=== PATIENT | male | born 1955 | race Caucasian/White ===

== ENCOUNTER 2018-02-01 03:09 | Inpatient (IN) | payer SELFPAY ==
[2018-02-01] MEDS ORDERED: Octreotide Acetate 1,250 MCG in Sodium Chloride 0.9% 250 ML 250 ML IVPB SCH (03:30)
[2018-02-01 03:57] LABS: ALT (SGPT) 317 U/L (8-55); AST (SGOT) 2109 U/L (5-34); Albumin 2.4 g/dL (3.5-5.0); Alkaline Phosphatase 248 U/L (40-150); Anion Gap 46 mmol/L (10-20); BUN (Urea Nitrogen) 28 mg/dL (8.4-25.7); Bilirubin, Total 6.3 mg/dL (0.2-1.2); CK (CPK) 684 U/L (30-200); Calc. Creatinine Clearance 0 mL/min (70-130); Calcium 7.3 mg/dL (7.8-10.44); Carbon Dioxide 13 mmol/L (22-29); Chloride 79 mmol/L (98-107); Estimated GFR-MDRD 42; Globulin 3.2 g/dL (2.4-3.5); Protein, Total 5.6 g/dL (6.0-8.3); Sodium 135 mmol/L (136-145)
[2018-02-01 04:01] LABS: CKMB 6.1 ng/mL (0-6.6); Troponin I 0.043 ng/mL (< 0.028)
[2018-02-01 04:03] LABS: Glucose 39 mg/dL (70-105); Potassium 2.5 mmol/L (3.5-5.1)
[2018-02-01] MEDS ORDERED: Dextrose 50% Abboject 50 ML SYRINGE ONE (04:03)
[2018-02-01 04:05] LABS: Medtox Reader # READER 1
[2018-02-01 04:06] LABS: Amphetamine Not Detected (NotDetected); Barbiturates Screen Not Detected (NotDetected); Benzodiazepine Screen Not Detected (NotDetected); Cocaine Metabolite Screen Not Detected (NotDetected); Medtox Control Line Valid? VALID (VALID); Methadone Not Detected (NotDetected); Methamphetamine Not Detected (NotDetected); Opiate Screen Not Detected (NotDetected); Oxycodone Screen Not Detected (NotDetected); Phencyclidine (PCP) Not Detected (NotDetected); THC/Cannabinoid Screen Not Detected (NotDetected); Tricyclic Screen Not Detected (NotDetected)
[2018-02-01 04:10] LABS: Hemoglobin 8.8 g/dL (14.0-18.0); Mean Corpuscular HGB CONC 33.9 g/dL (32.0-36.0); Mean Corpuscular Hemoglobin 37.2 pg (27.0-31.0); Mean Platelet Volume 9.1 fL (7.4-10.4); Platelet Count 140 thou/uL (130-400); Red Blood Cell (RBC) Count 2.36 mill/uL (4.70-6.10)
[2018-02-01 04:19] LABS: Actual Bicarbonate (HCO3a) 19.4 mEq/L (22-28); Base Excess (BEa) -9.2 mEq/L (-2.0 to +3.0); CO2 Tension 61.3 mmHg (35.0-45.0); Hematocrit-ABG 29.3 % (42.0-52.0); Hemoglobin (Hb) 6.2 g/dL (14.0-18.0); O2 Tension (PaO2) 93.1 mmHg (> 80.0); pH, Arterial 7.12 (7.35-7.45)
[2018-02-01 04:20] LABS: Analyzer IN Cardio ER; Calcium, Ionized 0.8 mmol/L (1.12-1.30); Puncture Site FEMORAL
[2018-02-01 04:21] LABS: ALV-art Gradient 538.275 (0-20)
[2018-02-01 04:28] LABS: INR-International Normal Ratio 2.1; PTT 43.4 SEC (22.9-36.1); Prothrombin Time 23.8 SEC (12.0-14.7)
[2018-02-01] MEDS ORDERED: cefTRIAXone\\ROCEPHIN 1 GM VIAL ONE (05:14)
[2018-02-01 05:23] LABS: Band 21 % (5-11); Lymphocytes 13 % (21-51); MDiff Complete? YES; Macrocytosis SLIGHT = 6-15 cells (100X) (0-5/hpf); Monocytes 2 % (0-10); Neutrophil 64 % (42-75)
[2018-02-01 05:36] LABS: Bilirubin Moderate (Negative); Blood, Urine Negative (Negative); Clarity CLOUDY (Clear); Glucose, Urine (Dipstick) Negative (Negative); Leukocyte Small (Negative); Nitrite Positive (Negative); Protein, Urine (Dipstick) Trace mg/dL (Neg-Trace); Specific Gravity, Urine 1.018 (1.002-1.036); pH, Urine 5.5 (5.0-9.0)
[2018-02-01 05:39] LABS: Bacteria/HPF None Seen HPF (None Seen); Hyaline Casts/LPF 4-6 HYALINE CAST LPF (0-3 Hyaline); Pathc Cast-AUWi Flag 0.87 (0-2.49); Squamous Epithelial None Seen HPF (0-3); WBC/HPF None Seen HPF (0-3)
[2018-02-01 05:44] LABS: INR-International Normal Ratio 1.9; PTT 41.7 SEC (22.9-36.1); Prothrombin Time 22.4 SEC (12.0-14.7)
[2018-02-01] MEDS ORDERED: Sodium Chloride 0.9% 1,000 ML IV SCH (06:15)
[2018-02-01] MEDS ORDERED: Dextrose 5% in Water 1,000 ML IV PRN ×2 (06:28→06:39)
[2018-02-01] MEDS ORDERED: Dextrose 50% Abboject 50 ML SYRINGE SLOW IVP PRN (06:28)
[2018-02-01 06:37] LABS: Anisocytosis SLIGHT = 6-15 cells (100X) (0-5/hpf); Band 11 % (5-11); Hemoglobin 9.2 g/dL (14.0-18.0); Lymphocytes 32 % (21-51); MDiff Complete? YES; Macrocytosis SLIGHT = 6-15 cells (100X) (0-5/hpf); Mean Corpuscular HGB CONC 32.6 g/dL (32.0-36.0); Mean Corpuscular Hemoglobin 34.4 pg (27.0-31.0); Monocytes 2 % (0-10); Neutrophil 55 % (42-75); PLT Morphology Comment Appears Decreased; Platelet Count 112 thou/uL (130-400); RBC Distribution Width 15.7 % (11.5-14.5); Red Blood Cell (RBC) Count 2.66 mill/uL (4.70-6.10); White Blood Cell (WBC) Count 3.6 thou/uL (4.8-10.8)
[2018-02-01] MEDS ORDERED: Dextrose 5 % And 0.9 % NaCl 1,000 ML IV SCH (06:39)
[2018-02-01] MEDS ORDERED: CCU Electrolyte Replacement 1 EACH FS ONE ×2 (06:39→06:47)
[2018-02-01] MEDS ORDERED: Ventilator Sedation Protocol 1 EACH FS ONE (06:39)
[2018-02-01] MEDS ORDERED: DISCONTINUE PREVIOUS NARCOTIC PAIN MEDICATIONS AND BENZODIAZEPINES FS SCH (06:45)
[2018-02-01] MEDS ORDERED: Lorazepam 2 MG/ML VIAL SLOW IVP PRN (06:45)
[2018-02-01] MEDS ORDERED: Propofol BOLUS 1,000 MG/100 ML VIAL IV PRN (06:45)
[2018-02-01] MEDS ORDERED: Morphine 4 MG/ML VIAL SLOW IVP PRN (06:45)
[2018-02-01] MEDS ORDERED: Propofol 1,000 MG/100 ML VIAL IV PRN (06:45)
[2018-02-01] MEDS ORDERED: Fentanyl BOLUS 250 ML IVPB PRN (06:45)
[2018-02-01] MEDS ORDERED: fentaNYL Citrate/PF 2,000 MCG in Sodium Chloride 0.9% 60 ML IV SCH (06:45)
[2018-02-01] MEDS ORDERED: Potassium Chloride 20 MEQ TAB PO PRN (06:47)
[2018-02-01] MEDS ORDERED: Magnesium Oxide 400 MG TAB PO PRN ×2 (06:47)
[2018-02-01] MEDS ORDERED: Potassium Chloride 40 MEQ in Sodium Chloride 0.9% 250 ML 250 ML IVPB PRN (06:47)
[2018-02-01] MEDS ORDERED: Magnesium 2 GM/NS 0.9% 100 ML 2 GM in Premix Bag 1 BAG IVPB PRN (06:47)
[2018-02-01] MEDS ORDERED: Potassium Phosphate 15 MMOL in Sodium Chloride 0.9% 250 ML 250 ML IV PRN (06:47)
[2018-02-01] MEDS ORDERED: CCU ELECTROLYTE REPLACEMENT PROTOCOL FS PRN (06:47)
[2018-02-01] MEDS ORDERED: Potassium Phosphate 12 MMOL in Sodium Chloride 0.9% 250 ML 250 ML IV PRN (06:47)
[2018-02-01] MEDS ORDERED: Potassium Phosphate 9 MMOL in Sodium Chloride 0.9% 100 ML IVPB PRN (06:47)
[2018-02-01] MEDS ORDERED: Potassium Chloride 40 MEQ in Premix Bag 1 BAG IVPB PRN (06:47)
[2018-02-01] MEDS ORDERED: Phytonadione 10 MG in Sodium Chloride 0.9% 50 ML IVPB SCH (07:15)
--- NOTE | 2018-02-01 07:25 | HP ---
PRIMARY CARE PHYSICIAN: Patient has no PCP. TIME OF EVALUATION: 6:00 a.m. CODE STATUS: Full code. CHIEF COMPLAINT: The patient passed out at home. HISTORY OF PRESENT ILLNESS: This is a 62-year-old male patient with a strong history of alcoholism. He has never followed with any doctor, also has history of hypertension, was not taking any medication at home. Daughter is telling the story that she was called at home when her father fell in the bathroom, she called her mom, but she was also drunk and supposedly did not check on what was happening to her father. She went home after a few hours and found that the patient was still on the floor, confused, they called the ambulance. The patient was transferred to the ER. The patient was intubated due to respiratory failure. The patient was found to have coffee ground material in the stomach, patient was stable during transfer. Upon arrival to our ER, the patient was found to be hypotensive. Massive transfusion protocol was activated. The patient received a total of 1 liter normal saline prior to transfer, also, 3 PRBCs, plus 2 FFPs with a total volume of about 3 liters, blood pressure recovered, patient has been stabilized, admitted to ICU, Dr. Borrero has been called for GI. He will see the patient, we will follow recommendations. Dr. Alfaro has been consulted from ICU who will see the patient. We will follow recommendations. Details have been given to the daughter. The symptoms on presentation were severe. The patient went into hypercapnic hypoxic respiratory failure. We will be placing ICU and possible EGD once the patient is stable. REVIEW OF SYSTEMS: Unable to obtain since the patient is sedated and intubated. PAST MEDICAL HISTORY: Alcohol abuse, hypertension. SOCIAL HISTORY: The patient drinks on a daily basis, as per daughter an excessive amount of alcohol. PAST SURGICAL HISTORY: He has a previous history of surgery for diverticulitis. FAMILY HISTORY: Unable to be reviewed. The patient is intubated and sedated. ALLERGIES: No reported allergies by daughter. HOME MEDICATIONS: Blood pressure medications, possible lisinopril. PHYSICAL EXAMINATION: VITAL SIGNS: During my evaluation, blood pressure 88/64, heart rate 88, temperature is normal, saturation is normal. GENERAL APPEARANCE: The patient is intubated, sedated. HEENT: Eyes; dry conjunctivae, anicteric. NECK: No JVD. RESPIRATORY: Bilateral air entry. No rales, no wheezing. Symmetrical expansion. Patient intubated. CARDIOVASCULAR: Normal rate, regular rhythm. No gallop. Bilateral leg edema. ABDOMEN: Mildly distended, soft, normal bowel sounds. MUSCULOSKELETAL: Baseline range of motion. SKIN: Warm and intact. No pallor, no rash, no redness. NEUROLOGIC: Patient intubated, sedated, unable to fully explore. PSYCHIATRIC: Unable to explore. LABORATORY DATA: Reviewed. The patient has white count 10, hemoglobin 8.8, MCV 110, platelet count 140, bands 21. Coagulation: PT 23.8, INR 2.1, PTT 43.4 corrected INR after 2 FFPs is 1.9. The ABG was done and showed a pH 7.12, pCO2 61.3. Oxygen 93.1, this was on SIMV at the rate of 14 and 100% oxygen, tidal volume 500, pressure support of 10. Chemistry was reviewed. The patient has sodium 135, potassium 2.5, chloride 79, carbon dioxide 13, anion gap 46, BUN 28, creatinine 1.66, GFR 42, glucose 39 on presentation corrected to 119. Lactic acid 36.5, calcium 7.3, bilirubin 6.3, AST 2109, ALT 317, alkaline phosphatase 248, ammonia 420. CK 684, CK-MB 6.1, troponin 0.040, brain natriuretic peptide 75.5. Lipase 200. Urine was done and was negative for infection. Brain CT and chest x-ray was reviewed. There are no significant abnormalities. The KUB was reviewed. NG tube seems to be in the right position. EKG was reviewed and discussed with performing ER physician. The patient has rate of 85, prolonged QT, possible inferior [place]. ASSESSMENT AND PLAN: The patient will be admitted to the ICU for the following medical conditions: Time spent with the patient at bedside, coordination of care, reviewing and evaluation of records, more than 35 minutes. 1. Upper gastrointestinal bleeding leading to hypovolemic shock. The patient has received massive transfusion protocol, will follow CBC to determine further need for transfusion. Dr. Borrero has been called by ER with plan to scope the patient once more stable. Likely variceal bleeding. 2. Hypovolemic shock that has responded to volume replacement. The patient received a total of 3 liters normal saline plus 2 PRBC, plus 2 fresh frozen plasma, now receiving another bolus. His blood pressure has been dropping during my evaluation today. We will continue to replace volume as needed. 3. Liver failure given very elevated liver function tests, high INR, high bilirubin, this is likely secondary to alcohol abuse. GI has been consulted, we will follow recommendations. We are giving fresh frozen plasma to improve the INR. 4. Acute respiratory failure with hypoxia and hypercapnia. The patient is intubated, sedated. Dr. Alfaro has been consulted for further recommendations. 5. Hyponatremia. Sodium 135, this might be secondary to liver cirrhosis, no need for any acute intervention. The patient receiving normal saline during initial treatment. We will monitor level. 6. Moderate hypokalemia of 2.5, potassium replacement has been ordered, we will monitor potassium, will replace as needed. 7. Anion gap metabolic acidosis likely secondary to kidney failure, hypovolemic shock, lactic acidosis. We will treat the underlying condition. 8. Acute kidney injury with creatinine 1.66, GFR 42, patient receiving hydration, this is likely secondary to shock, we will treat the underlying condition. Monitor kidney function, if no improvement, need nephrology consultation. . 9. Hypoglycemia of 39. As per daughter, the patient has had this problem in the past, was corrected. Last blood sugar was 119, we with monitor blood sugar , with hypoglycemia protocol. 10. Lactic acidosis with lactic acid of 26.5, this is likely due to shock plus liver failure. We will treat the underlying condition. 11. Elevated troponin 0.043, this is likely secondary to yae-CJ-janbdoh elevation myocardial infarction, could be secondary to demand ischemia. 12. Possible underlying pancreatitis, this could be secondary to shock also with lipase 200. We will treat underlying condition. 13. At this point, prognosis is very poor given the above-mentioned pathologies. If not improving going to consider discussion of goals of care with family. 14. Possible sepsis. The patient has presented with lactic acidosis, shock, hemoglobin is 9, not significantly low. Sepsis remains a possibility. The patient has bandemia. The patient has been started broad spectrum antibiotics. Culture has been sent. 15. Multiple organ failure- very poor prognosis, if not improving would discussed with family to reassess goals of care. [facility]
--- NOTE | 2018-02-01 08:11 | RAD ---
SINGLE VIEW OF THE LOWER CHEST: COMPARISON: None. HISTORY: NG tube placement. FINDINGS: A single view of the lower chest shows an NG tube within the stomach. The cardiomediastinal silhouet te is normal in size. IMPRESSION: Nasogastric tube located in the stomach. POS: [facility]
[2018-02-01 08:13] LABS: Lactic Acid 25.1 mmol/L (0.5-2.2)
--- NOTE | 2018-02-01 08:14 | RAD ---
SINGLE VIEW OF THE CHEST: COMPARISON: None. HISTORY: GI bleeding. Transfer from [place]. FINDINGS: A single view of the chest shows an enlarged cardiomediastinal silhouette. An endotracheal tube is s een with its tip between the clavicles. A left-sided central venous catheter is seen with its tip in the superior vena cava. An NG tube is seen coursing off the inferior aspect of the film, likely wit hin the stomach. Atelectasis is seen in the lung bases. There is no evidence of consolidation, mass , or pleural effusion. IMPRESSION: Appropriate position of lines and tubes. POS: [facility]
--- NOTE | 2018-02-01 08:20 | CON ---
DATE OF CONSULTATION: 02/01/2018 REASON FOR CONSULTATION: Coffee-ground emesis, altered mentation. HISTORY: Mr. Lowery is a 62-year-old male who [facility] being found with altered mentation and combative in the field with evidence of GI bleeding c haracterized as coffee ground emesis. The patient was intubated in [place] and was subsequently br ought to [facility]. His systolic blood pressure in the field was in the 120s range. However, it dropped down to the 80s in the emergency room. Reportedly he had 500 mL of coffee groun d gastric content evacuated. The patient's ammonia level was noted to be 170 in [place] and was re peated to be over 400 here at this facility. The patient has no previous history of GI bleeding. He has a history of heavy alcohol consumption, according to the daughter, typically start off with gin in the morning and finish with whiskey at night. There is no history of previous GI bleeding. He bryan s no other medical illness other than hypertension according to his daughter. Currently, the patient 's vitals are stable with a blood pressure 90/70 with a pulse in the 80s. The patient is intubated a nd no other medical history was obtained. PAST MEDICAL HISTORY: 1. Hypertension per daughter, not on any medication. 2. History of diverticulitis, status post segmental colectomy in his 20s. ALLERGIES: None. MEDICATIONS AT HOME: None. SOCIAL HISTORY: The patient is , has 5 children. He does smoke 1-2 packs of cigarettes a day , he has chronic alcohol consumption, currently with gin and whiskey all day long according to his da heather, heavy consumption over the last 5 years after his best friend . FAMILY HISTORY: No known GI problem, liver disease or GI malignancy. REVIEW OF SYSTEMS: Not obtainable. PHYSICAL EXAMINATION: VITAL SIGNS: Blood pressure is 102/55 on 15 Levophed, pulse of 88, temperature 95.7. GENERAL: He is sedated and intubated. NG with dark blackish effluent. NECK: Supple. CARDIOVASCULAR: Shows normal S1, S2, regular rate and rhythm. CHEST: Shows normal breath sounds. ABDOMEN: Protuberant. No tympany. No palpable mass or organomegaly, but this exam is limited secon moises to size. He has active bowel sounds. EXTREMITIES: Shows no edema. LABORATORY DATA: WBC is 3.6, hemoglobin 9.2 after 2 units. MCV of 106, platelet count of 112. INR of 1.9, PTT of 41.7. Sodium 135, potassium 3.5, chloride 79, CO2 13, creatinine 1.66, BUN of 28, mingo irubin 6.3, AST of 2109, ALT of 317, alkaline phosphatase 248. Ammonia level 420, lipase of 200, hallie bulin 2.2. ASSESSMENT: 1. Limited upper gastrointestinal bleed with coffee ground emesis. No signs of severe active bleedi ng at the present time based on NG output. 2. Hepatic encephalopathy. 3. Acute alcoholic hepatitis with a questionable underlying cirrhosis. 4. Status post intubation secondary to altered mentation and combative behavior. RECOMMENDATIONS: 1. Continue IV octreotide 50 mcg an hour. 2. Would avoid overly transfusing patient. 3. Diagnostic upper endoscopy later this morning. 4. We will begin treatment for hepatic encephalopathy with enteric lactulose after endoscopy and shahrzad l add rifaximin 550 mg b.i.d. 5. Vitamin K 10 units daily. 6. We will follow closely.
[2018-02-01] MEDS: Vancomycin HCl 1 GM in Premix Bag 1 BAG IVPB SCH ×2 (08:21→20:38)
[2018-02-01] MEDS: Potassium Chloride 20 MEQ in Premix Bag 1 BAG IVPB SCH ×2 (08:22→10:51)
--- NOTE | 2018-02-01 08:22 | RAD ---
CHEST 1 VIEW: Date: 02/01/18 HISTORY: Enteric tube placement. COMPARISON: Chest radiograph from same date. FINDINGS: The patient is intubated, endotracheal tube tip at level of the clavicles. A left subclavian line is in place with tip migrating towards the neck. Enteric tube side port is felt to be at the upper thora cic esophagus, tip not well seen. IMPRESSION: 1. Subclavian line tip migrating towards neck. This is no longer in the SVC. 2. Endotracheal tube tip at level of clavicles. 3. Enteric tube side port above the GE junction. Recommend advancing. Notified the nurse taking care of the patient of the above findings via telephone at 0745 hours. CODE CR. POS: [facility]
--- NOTE | 2018-02-01 08:48 | ULT ---
ULTRASOUND ABDOMEN: Date: 02/01/18 HISTORY: Ascites. COMPARISON: None. FINDINGS: Exam is extremely limited due to patient's inability to move. There is small volume ascites. Increase d hepatic echotexture. The aorta and IVC are not well seen. There is cholelithiasis. Gallbladder wall is thickened, although there is no gallbladder dilatation. Left kidney measures 9.9 x 5.4 x 5.3 cm. Right kidney is not well seen, nor is the spleen, aorta, or IVC. Common bile duct is not seen, nor is the portal vein. IMPRESSION: 1. Small volume ascites. 2. Cholelithiasis. 3. Nonvisualization of multiple organs. 4. Increased hepatic echotexture consistent with steatosis or cirrhosis. 5. Mild gallbladder wall thickening without dilatation suggesting congestive changes. POS: [facility]
--- NOTE | 2018-02-01 08:54 | CT ---
PRELIMINARY REPORT/[facility]/EMERGENTY AFTER-HOURS PROCEDURE CT Head Without Intravenous Contrast CLINICAL HISTORY: 62 years old, male; Pain; Other: Gi bleed; Patient HX: Additional history obtained from ems, m60 repo rts to ed as transfer from [facility] via air ems C/O gi bleed. Ems reports intubation and ng tube by a ir med en route. Ems reports gsc 3 oa to [place]. Ems reports 100 ket (@ approx. 02: 00), 100 joceline g iven. Ems reports 500 cc blood from ng tube, and aspirated in [place]. Pt current BP 71/44, pulse 9 7, o2 sat 91% on ventilator and temp of 95.7. TECHNIQUE: Axial computed tomography images of the head/brain without intravenous contrast. COMPARISON: No relevant prior studies available. FINDINGS: Brain: Normal. No hemorrhage. No significant white matter disease. No edema. Ventricles: Normal. No ventriculomegaly. Bones/joints: Normal. No acute fracture. Soft tissues: Normal. Sinuses: Unremarkable as visualized. No acute sinusitis. Mastoid air cells: Unremarkable as visualized. No mastoid effusion. Tubes, lines and devices: Patient is intubated. IMPRESSION: No acute intracranial hemorrhage. Thank you for allowing us to participate in the care of your patient. Dictated and Authenticated by: Stephen Whitfield MD 02/01/2018 6:36 AM Central Time ([place] & [place]) FINAL REPORT CT BRAIN WITHOUT CONTRAST: Date: 02/01/18 HISTORY: GI bleed. COMPARISON: None. FINDINGS/IMPRESSION: Findings and impression are concordant with the preliminary report by Lars. POS: [facility]
--- NOTE | 2018-02-01 09:10 | CON ---
DATE OF CONSULTATION: 02/01/2018 This is 45 minutes critical care time. CONSULTING PHYSICIAN: Dr. Crowley. REASON FOR CONSULTATION: Hypotension and respiratory failure. HISTORY OF PRESENT ILLNESS: Mr. Lowery is a 62-year-old male who was transferred to this facility fro m the [place] [facility] where he presented earlier this evening with gastrointestinal bleeding . Right now, all I have is what I have learned from talking with the emergency room physician and re ading the notes from the emergency room. He is currently intubated and hypotensive. PAST MEDICAL HISTORY: 1. Diverticulitis. 2. Hypoglycemia. PAST SURGICAL HISTORY: He has had some type of bowel surgery and eye surgery. SOCIAL HISTORY: Drinks alcohol heavily, smokes half pack per day. ALLERGIES: None. MEDICATIONS PRIOR TO ADMISSION: Not known. REVIEW OF SYSTEMS: Cannot be obtained as the patient is currently intubated on mechanical ventilatio n. PHYSICAL EXAMINATION: VITAL SIGNS: Temperature is 95.4, pulse 81, blood pressure 75/38, respiratory rate 24, O2 sat 88%. GENERAL: The patient is currently intubated. NEUROLOGIC: He would not move to any stimulation. His pupils are about 8 mm. I am told he did rece elvia a paralytic in [place]. HEENT: Sclerae are muddy. Oropharynx, he has coffee ground coming from his NG tube. NECK: Without adenopathy or JVD. LUNGS: Coarse breath sounds. CARDIAC: S1, S2 tachycardic. ABDOMEN: Distended, may have ascites. Groin has severe tinea infection present. EXTREMITIES: No clubbing, cyanosis, or edema. LABORATORY DATA AND X-RAY FINDINGS: White blood cell count 3.6, hemoglobin 9.2, hematocrit 28.1, hussain telet count 112. INR is 1.9, pH 7.12, pCO2 61, pO2 of 93. Lactate 26.5, troponin 0.043, lipase 200. Sodium 135, potassium 2.5, chloride 79, CO2 13, BUN 28, creatinine 1.6, glucose initially 39, AST 1 09, ALT 317, ammonia 420. Urinalysis showed no significant white blood cells. Tox screen was negati ve. Chest x-ray shows a left subclavian central line that was placed in the ER that is in an appropr iate position. The endotracheal tube is in an appropriate position. He has an OG tube going into hi s distal stomach. He has lower lobe atelectasis. ASSESSMENT: 1. Upper gastrointestinal bleeding with severe hypotension. 2. Acute on chronic liver failure with severe transaminitis. 3. Alcohol abuse. 4. Hypoglycemia secondary to hepatic insufficiency. 5. Respiratory acidosis. 6. Lactic acidosis secondary to liver failure, possibly sepsis. 7. Question of spontaneous bacterial peritonitis. PLAN: 1. Needs further evaluation of abdominal situation with an ultrasound. 2. Adjust mechanical ventilation settings. 3. Add D5W to IV fluids. 4. Add Levophed for hypotension. 5. Agree with empiric antibiotics. 6. Octreotide drip. 7. Protonix drip. 8. Frequent blood sugar checks given hypoglycemia. 9. Educate family when they become available.
[2018-02-01 09:29] LABS: CO2 Tension 38.5 mmHg (35.0-45.0); O2 Tension (PaO2) 61.1 mmHg (> 80.0); pH, Arterial 7.18 (7.35-7.45)
[2018-02-01 09:30] LABS: Actual Bicarbonate (HCO3a) 13.9 mEq/L (22-28); Base Excess (BEa) -13.7 mEq/L (-2.0 to +3.0); Hemoglobin (Hb) 10.9 g/dL (14.0-18.0)
[2018-02-01 09:31] LABS: Calcium, Ionized 0.8 mmol/L (1.12-1.30)
[2018-02-01 09:32] LABS: Puncture Site RRA
[2018-02-01 09:33] LABS: ALV-art Gradient 603.775 (0-20)
--- NOTE | 2018-02-01 09:53 | RAD ---
PORTABLE CHEST ONE VIEW: Date: 02-01-18 Time: 8:44 a.m. History: Respiratory failure. FINDINGS/IMPRESSION: Comparison is made with earlier exam at 3:19 a.m. from the same date. Line and tube placements are unchanged in position. The heart size is stable. There are bilateral ple ural effusions with bibasilar opacities/atelectatic changes. No pneumothoraces are seen. POS: [facility]
[2018-02-01 10:11] LABS: Band 15 % (5-11); Eosinophils 1 % (0-10); Hemoglobin 10.6 g/dL (14.0-18.0); Lymphocytes 55 % (21-51); MDiff Complete? YES; Macrocytosis SLIGHT = 6-15 cells (100X) (0-5/hpf); Mean Corpuscular HGB CONC 32.8 g/dL (32.0-36.0); Mean Corpuscular Hemoglobin 34.2 pg (27.0-31.0); Mean Platelet Volume 9.1 fL (7.4-10.4); Monocytes 10 % (0-10); Neutrophil 19 % (42-75); Nucleated RBC 3 % (0); PLT Morphology Comment Appears Decreased; Platelet Count 97 thou/uL (130-400); Polychromasia SLIGHT = 2-3 cells (100X) (0-2/hpf); RBC Distribution Width 16.2 % (11.5-14.5); Red Blood Cell (RBC) Count 3.09 mill/uL (4.70-6.10); White Blood Cell (WBC) Count 2.8 thou/uL (4.8-10.8)
[2018-02-01] MEDS: Sodium Bicarbonate 140 MEQ in Dextrose 5% in Water 1,000 ML IV SCH ×2 (10:51→23:15)
--- NOTE | 2018-02-01 11:19 | OP ---
DATE OF PROCEDURE: 02/01/2018 PROCEDURE: Esophagogastroduodenoscopy. PREOPERATIVE DIAGNOSIS: Acute gastrointestinal bleed. PROCEDURE IN DETAIL: Informed consent was obtained. The procedure was performed in ICU on the [facility]. The endoscope was advanced easily to the second portion of the duodenum and retroflexion was performed in the stomach. The esophagus had erosive friable esophagitis in the distal esophagus at t he GE junction. This area distended poorly and could not be well visualized. There could be an esop hageal tear in this area that had some slow oozing throughout the case. This was washed and suctione d extensively and no focal vessel was identified to indicate cautery or focal treatment. There were no obvious varices at that time. There was a large hiatal hernia. There was red blood that again ac cumulated in the hiatal hernia from the mucosal oozing at the GE junction, but no large volume or hig h-pressure bleeding. No focal bleeding source was identified within the hiatal hernia. There was a very deep 1 cm wide ulcer in the fundus of the stomach just below the diaphragmatic pinch on the side of the lesser curvature. This had a necrotic base, but the base could not be fully visualized due t o its depth. There was no bleeding from the ulcer or blood around the ulcer. The stomach otherwise was unremarkable. The pylorus was normal. There is old black blood in the first and second portions of the duodenum which obscured views of this area. IMPRESSION: 1. Deep 1 cm ulcer with a necrotic base just below the diaphragmatic pinch on the side of the lesser curvature. There is no active bleeding from this ulcer. No visible vessel identified. It would se em this would be the more likely source for the large volume bleed that he presented with. There is no area for focal treatment currently. 2. Friable erosive esophagitis, possibly with a mucosal tear around the GE junction. This would slo wly ooze and reaccumulate red blood around the distal esophagus and the hiatal hernia, but there is n o actual focal bleeding source to cauterized or treat. There are no obvious varices. 3. Large hiatal hernia. 4. Old black blood in the duodenum which has obscured the views of this area. RECOMMENDATIONS: 1. Continue proton pump inhibitor drip. 2. Continue octreotide for now; however, this can likely be weaned off soon. 3. Follow hemoglobin and give volume resuscitation as needed. 4. He will require follow up EGD with the timing to be determined based on his clinical course.
[2018-02-01] MEDS: Dextrose 50% Abboject 50 ML SYRINGE SLOW IVP PRN ×2 (11:44→15:29)
[2018-02-01] MEDS ORDERED: Potassium Chloride 40 MEQ in Sodium Chloride 0.9% 250 ML 250 ML IVPB SCH (11:45)
[2018-02-01] MEDS ORDERED: Potassium Phosphate 30 MMOL in Sodium Chloride 0.9% 500 ML IVPB SCH (11:45)
[2018-02-01] MEDS ORDERED: Magnesium Sulfate 4 GM in Sodium Chloride 0.9% 250 ML 250 ML IVPB SCH (11:45)
[2018-02-01 12:23] VITALS: BMI 30.9
[2018-02-01] MEDS ORDERED: Multivitamins, Adult 10 ML, Folic Acid 1 MG, Thiamine HCl 100 MG in Dextrose 5 %-0.45 %... IV SCH (12:30)
[2018-02-01] MEDS: Calcium Gluconate 4.6 MEQ in Sodium Chloride 0.9% 100 ML IVPB SCH ×3 (12:37→19:48)
[2018-02-01] MEDS: Pantoprazole 80 MG in Sodium Chloride 0.9% 100 ML IVP SCH ×2 (13:24→23:16)
[2018-02-01] MEDS: EPINEPHrine 4 MG in Dextrose 5% in Water 250 ML IV SCH (15:31)
[2018-02-01] MEDS: Norepinephrine 8 MG/0.9% NS 250 ML IVPB SCH ×2 (15:33→20:10)
[2018-02-01 16:38] LABS: Hemoglobin 8.9 g/dL (14.0-18.0)
[2018-02-01 17:04] LABS: Anion Gap 38 mmol/L (10-20); BUN (Urea Nitrogen) 27 mg/dL (8.4-25.7); Calc. Creatinine Clearance 41 mL/min (70-130); Calcium 6.4 mg/dL (7.8-10.44); Carbon Dioxide 15 mmol/L (22-29); Chloride 87 mmol/L (98-107); Estimated GFR-MDRD 23; Glucose 105 mg/dL (70-105); Magnesium 2.4 mg/dL (1.6-2.6); Phosphorus 9.1 mg/dL (2.3-4.7); Sodium 137 mmol/L (136-145)
--- NOTE | 2018-02-01 17:11 | PDOC.EVN ---
Event Note - Event Note Event Note: Chart reviewed, patient seen. Family updated, will follow.
[2018-02-01] MEDS ORDERED: Potassium Chloride 40 MEQ in Premix Bag 1 BAG IVPB SCH ×2 (18:00→18:30)
[2018-02-01] MEDS ORDERED: VASOSTRICT IV SCH (20:15)
[2018-02-01] MEDS ORDERED: SODIUM CHLORIDE 0.9% IV SCH (20:15)
[2018-02-01] MEDS: Sodium Chloride 0.9% 1,000 ML IV SCH ×2 (20:37→21:27)
[2018-02-01 22:57] LABS: Hemoglobin 8.6 g/dL (14.0-18.0)
[2018-02-02] MEDS: Dextrose 50% Abboject 50 ML SYRINGE SLOW IVP PRN ×5 (02:35→15:40)
[2018-02-02 03:43] LABS: Band 44 % (5-11); Hemoglobin 8.3 g/dL (14.0-18.0); Lymphocytes 30 % (21-51); MDiff Complete? YES; Macrocytosis SLIGHT = 6-15 cells (100X) (0-5/hpf); Mean Corpuscular HGB CONC 33.4 g/dL (32.0-36.0); Mean Corpuscular Hemoglobin 35.6 pg (27.0-31.0); Mean Platelet Volume 8.8 fL (7.4-10.4); Metamyelocyte 6 % (0-0); Monocytes 1 % (0-10); Myelocyte 3 % (0-0); Neutrophil 16 % (42-75); Nucleated RBC 12 % (0); PLT Morphology Comment Appears Decreased; Platelet Count 102 thou/uL (130-400); Polychromasia SLIGHT = 2-3 cells (100X) (0-2/hpf); RBC Distribution Width 17.8 % (11.5-14.5); Red Blood Cell (RBC) Count 2.34 mill/uL (4.70-6.10); Toxic Granulation SLIGHT; White Blood Cell (WBC) Count 8.2 thou/uL (4.8-10.8)
[2018-02-02 04:24] LABS: ALT (SGPT) 1007 U/L (8-55); Albumin 1.8 g/dL (3.5-5.0); Alkaline Phosphatase 574 U/L (40-150); Anion Gap 36 mmol/L (10-20); BUN (Urea Nitrogen) 25 mg/dL (8.4-25.7); Bilirubin, Total 5.8 mg/dL (0.2-1.2); Calc. Creatinine Clearance 32 mL/min (70-130); Calcium 6.2 mg/dL (7.8-10.44); Carbon Dioxide 14 mmol/L (22-29); Chloride 88 mmol/L (98-107); Estimated GFR-MDRD 17; Globulin 2.2 g/dL (2.4-3.5); Glucose 248 mg/dL (70-105); Magnesium 2.4 mg/dL (1.6-2.6); Potassium 3.4 mmol/L (3.5-5.1); Sodium 135 mmol/L (136-145)
[2018-02-02 04:59] LABS: PTT 70.9 SEC (22.9-36.1); Prothrombin Time 49.7 SEC (12.0-14.7)
[2018-02-02 05:07] LABS: INR-International Normal Ratio 5.1
[2018-02-02 06:09] LABS: AST (SGOT) Greater than 3500 U/L (5-34)
[2018-02-02] MEDS ORDERED: cefTRIAXone\\ROCEPHIN 1 GM in Sodium Chloride 0.9% 100 ML IVPB SCH (06:15)
[2018-02-02] MEDS ORDERED: Dextrose 50% Abboject 50 ML SYRINGE ONE (06:47)
[2018-02-02 06:49] LABS: Actual Bicarbonate (HCO3a) 13.5 mEq/L (22-28); CO2 Tension 54.4 mmHg (35.0-45.0); O2 Tension (PaO2) 53.7 mmHg (> 80.0); pH, Arterial 7.01 (7.35-7.45)
[2018-02-02 06:50] LABS: Base Excess (BEa) -16.7 mEq/L (-2.0 to +3.0)
[2018-02-02] MEDS ORDERED: Sodium Bicarb 50 MEQ/50 ML Abboject 8.4% SYRINGE ONE ×2 (06:50)
[2018-02-02 06:51] LABS: Hemoglobin (Hb) 8.7 g/dL (14.0-18.0)
[2018-02-02 06:52] LABS: Calcium, Ionized 0.8 mmol/L (1.12-1.30); Puncture Site RRA
[2018-02-02] MEDS ORDERED: Sodium Bicarb 50 MEQ/50 ML Abboject 8.4% SYRINGE IVP SCH (07:00)
[2018-02-02] MEDS ORDERED: Sodium Bicarbonate 150 MEQ in Dextrose 5% in Water 1,000 ML IV SCH (08:09)
--- NOTE | 2018-02-02 08:26 | RAD ---
SINGLE VIEW OF THE CHEST: COMPARISON: 02/01/18. History Ventilated patient with respiratory failure. FINDINGS: A single view of the chest shows an enlarged but stable cardiomediastinal silhouette. The lines and tubes are unchanged in position. There are bilateral veil-like opacities which likely represent laye ring pleural effusions. Multifocal mixed alveolar/interstitial opacities are present. IMPRESSION: Stable exam. POS: [facility]
[2018-02-02] MEDS ORDERED: Folic Acid 1 MG TAB PO SCH (09:00)
[2018-02-02] MEDS ORDERED: levETIRAcetam In NaCl (Iso-Os) 1,000 MG in Premix Bag 1 BAG IVPB SCH (09:00)
--- NOTE | 2018-02-02 09:30 | PRG ---
DATE OF SERVICE: 02/02/2018 SERVICE: Pulmonary Medicine. INTERVAL HISTORY: The patient has done poorly over the last 24 hours. He has required replacement o f multiple electrolytes. He remains completely encephalopathic. Overnight, his blood pressures have been marginal. We needed to go back up on a little bit of Levophed. He is still on Levophed, vasop ressin, and epinephrine. His blood pressures are marginal. He has not made any urine output. He st arted arrhythmic jerking of the right upper extremity, consistent with possible underlying seizure. He cannot provide any additional elements of the history. Otherwise, there were no significant overn ight events. PHYSICAL EXAMINATION: VITAL SIGNS: Afebrile currently, but he had a T-max of 101.3, pulse 107, blood pressure 136/83, resp irations 33, saturation 82% on 100% FIO2 and a PEEP of 10. GENERAL: The patient is intubated and on no sedation, but completely encephalopathic. HEENT: Normocephalic, atraumatic. Sclerae are white, conjunctivae pink. Oral mucosa is moist witho ut lesions. LUNGS: Decent air entry. There is no prolonged expiratory phase, wheezing, rhonchi or crackles. HEART: Normal rate, regular. ABDOMEN: Soft. There is no rebound or guarding present. He is distended with possible ascites. Farzad wel sounds are hypoactive. GENITOURINARY: Alfonso catheter in place. NEUROLOGIC: He has got focal twitching in the right upper extremity. Otherwise, he remains complete ly encephalopathic and otherwise nonfocal. LABORATORY DATA: WBC 8.2, hemoglobin 8.3, platelets 102,000. Band count has increased to 44%. INR 5.1 and up trending, pH 7.01, pCO2 54, pO2 of 53 on 100% FIO2 and a PEEP of 5. Potassium 3.4, which has improved dramatically, bicarbonate 14, and roughly stable. Chloride and sodium are slightly redu shyam. Creatinine continues to expeditiously trend upward at 3.64. Glucose 248. AST is greater than the assay limit of 3500. ALT has increased to 1000. Ammonia 337 and is actually down trending. IMAGING: Chest x-ray demonstrates evidence of low lung volumes with bilateral pulmonary edema. Endo tracheal tube is roughly 6 cm above the level of gricelda. Left subclavian central venous catheter is in excellent position. There is likely bilateral pleural effusions present. ASSESSMENT: 1. Acute hypoxic respiratory failure. 2. Acute liver failure. 3. Alcoholic hepatitis. 4. Upper gastrointestinal bleed secondary to severe gastritis with underlying ulcers present. 5. Septic shock. 6. Spontaneous bacterial peritonitis, suspected. 7. Acute kidney injury. DISCUSSION AND PLAN: Since the patient is completely anuric and this bicarbonate drip is not control ling his acidosis and running to volume issues, we are going to consult Nephrology to initiate dialys is. The patient's discriminate function is incredibly elevated. As such, we initiated some predniso ne yesterday. Prednisone some steroids yesterday. Because of the patient's multiple medical issues right now and multisystem organ dysfunction, there is a very strong likelihood that he is not going t o survive this hospital stay. If the acute liver injury can be stabilized, there is a possibility th at the patient could make some kind of recovery. That being said, this process is likely to take sev eral days if not weeks. Once dialysis is underway, we will discontinue the bicarbonate drip. If the family understands that initiating dialysis could destabilize the patient resulting in sudden . We will put him on antiepileptic drug for this rhythmic contraction of the right upper extremity.
[2018-02-02] MEDS: Norepinephrine 8 MG/0.9% NS 250 ML IVPB SCH ×2 (09:37→15:26)
[2018-02-02 12:39] LABS: HBSAB Concentration 1.44 mIU/mL; HBSAg Index 0.17 S/CO (0-0.99); Hep B Core Total Ab Non-Reactive (NonReactive); Hep B Surf AB Non-Reactive (NonReactive); Hep B Surf Ag Non-Reactive S/CO (NonReactive); Hep C IgG Ab Non-Reactive (NonReactive); Hep C Index 0.15 S/CO (0-0.79)
[2018-02-02] MEDS ORDERED: Octreotide Acetate 1,250 MCG in Sodium Chloride 0.9% 250 ML 250 ML IVPB SCH (13:15)
[2018-02-02] MEDS: EPINEPHrine 4 MG in Dextrose 5% in Water 250 ML IV SCH (15:27)
--- NOTE | 2018-02-02 15:41 | PDOC.PN ---
- Subjective Encounter Start Date: 02/02/18 Encounter Start Time: 10:40 Pt seen for followup re: hypovolemic shock. Intubated, unable to complete ROS. Family by bedside. - Objective Resuscitation Status: Resuscitation Status DNR:Do Not Resuscitate MAR Reviewed: Yes Vital Signs & Weight: Vital Signs (12 hours) Pulse Resp BP 02/02/18 13:42 84 02/02/18 11:10 96 98/45 L 02/02/18 06:07 99 106/71 02/02/18 06:00 30 H Weight Admit Weight 227 lb 11.2 oz Weight 227 lb 11.8 oz Most Recent Monitor Data Heart Rate from ECG 87 NIBP 136/97 NIBP BP-Mean 115 Respiration from ECG 24 SpO2 87 I&O: 02/01/18 02/02/18 02/03/18 06:59 06:59 06:59 Intake Total 5631.8 Output Total 400 Balance 5231.8 Result Diagrams: 02/02/18 02:45 02/02/18 02:45 Additional Labs: Accuchecks 02/02/18 02/02/18 02/02/18 12:02 11:38 10:10 POC Glucose 113 H 49 L* 68 L 02/02/18 02/02/18 02/02/18 09:09 06:20 06:11 POC Glucose 130 H 280 H 40 L* 02/02/18 02/02/18 02/02/18 04:12 03:43 00:30 POC Glucose 78 102 82 02/01/18 02/01/18 02/01/18 22:08 20:07 18:13 POC Glucose 128 H 149 H 120 H 02/01/18 02/01/18 02/01/18 16:17 15:49 15:00 POC Glucose 124 H 140 H 63 L 02/01/18 02/01/18 02/01/18 14:05 13:02 12:13 POC Glucose 82 94 186 H 02/01/18 02/01/18 11:33 11:25 POC Glucose 120 H 57 L* EKG Reviewed by me: Yes (Tele: NSR) Phys Exam - Physical Examination Intubated, obese HEENT: moist MMs Scleral icterus, ETT, mingo pupils reactive to light Respiratory: no wheezing, no rales, no rhonchi Coarse breath sounds mingo Cardiovascular: RRR, no rub S1, S2 Gastrointestinal: soft, non-tender, positive bowel sounds distention No spontaneous movements of four limbs Deviation from normal: Unable to assess mood, affect or orientation to person, place or time Dx/Plan (1) Hypovolemic shock Code(s): R57.1 - HYPOVOLEMIC SHOCK Status: Acute Comment: continue pressors , target MAP 60-65 mmHg (2) Acute respiratory failure with hypoxia Code(s): J96.01 - ACUTE RESPIRATORY FAILURE WITH HYPOXIA Status: Acute Comment: Intubated and mechanically ventilated in CCU (3) Hepatic failure Status: Acute Comment: started on steroids, probable alcoholic hepatitis (4) Hypokalemia Code(s): E87.6 - HYPOKALEMIA Status: Acute Comment: replace per protocol (5) UGIB (upper gastrointestinal bleed) Code(s): K92.2 - GASTROINTESTINAL HEMORRHAGE, UNSPECIFIED Status: Acute Comment: s/p EGD (ulcer, erosive esophagitis, old blood), continue PPI and octreotide drips (6) CUAUHTEMOC (acute kidney injury) Code(s): N17.9 - ACUTE KIDNEY FAILURE, UNSPECIFIED Status: Acute Comment: nephrology consulted for opinion and help with management - Plan * . Pt is on ceftriaxone and vancomycin for ? SBP Review of Systems - Medications/Allergies Allergies/Adverse Reactions: Allergies Allergy/AdvReac Type Severity Reaction Status Date / Time No Known Allergies Allergy Unverified 02/01/18 03:28 Medications: Current Medications Dextrose/Water (Dextrose 50%) 25 gm SLOW IVP PRN PRN PRN Reason: Hypoglycemia Last Admin: 02/02/18 11:39 Dose: 25 gm Folic Acid (Folvite) 1 mg PO DAILY EULA Last Admin: 02/02/18 08:48 Dose: 1 mg Glucagon (Glucagon) 1 mg IM PRN PRN PRN Reason: Hypoglycemia Ceftriaxone Sodium 1 gm/ (Sodium Chloride) 100 mls @ 200 mls/hr IVPB Q24HR EULA Last Admin: 02/02/18 06:00 Dose: 100 mls Dextrose/Water (D5w) 1,000 mls @ 0 mls/hr IV .Q0M PRN; As Directed PRN Reason: Hypoglycemia Norepinephrine Bitartrate (Levophed) 250 mls @ 0 mls/hr IVPB INF EULA; Titrate PRN Reason: Protocol Last Admin: 02/02/18 15:26 Dose: 250 mls Potassium Chloride 40 meq/ (Sodium Chloride) 270 mls @ 135 mls/hr IVPB ASDIR PRN PRN Reason: FOR SERUM K+ 2.5 - 3.5 Potassium Chloride 40 meq/ (Device) 100 mls @ 50 mls/hr IVPB ASDIR PRN PRN Reason: FOR SERUM K+ 2.5 - 3.5 Magnesium Sulfate 1 gm/ Sodium (Chloride) 102 mls @ 102 mls/hr IV PRN PRN PRN Reason: MAG LEVEL 1.4 - 2.0 Last Admin: 02/01/18 10:51 Dose: 102 mls Magnesium Sulfate 2 gm/ Device 100 mls @ 100 mls/hr IVPB ASDIR PRN PRN Reason: MAGNESIUM < 1.4 Potassium Phosphate 9 mmol/ (Sodium Chloride) 103 mls @ 25.75 mls/hr IVPB ASDIR PRN PRN Reason: Phosphate 1.0-1.8 Potassium Phosphate 12 mmol/ (Sodium Chloride) 254 mls @ 63.5 mls/hr IV ASDIR PRN PRN Reason: Serum phosphate 0.5-0.9 Potassium Phosphate 15 mmol/ (Sodium Chloride) 255 mls @ 63.75 mls/hr IV ASDIR PRN PRN Reason: Serum Phos < 0.5 Epinephrine 4 mg/ Dextrose/ (Water) 254 mls @ 0 mls/hr IV INF EULA; Titrate PRN Reason: Protocol Last Admin: 02/02/18 15:27 Dose: 254 mls Vasopressin 40 unit/Miscellaneous Medication 1 each/ Sodium Chloride 102 mls @ 6 mls/hr IV INF EULA PRN Reason: Protocol Vancomycin HCl 1.5 gm/ Sodium (Chloride) 300 mls @ 200 mls/hr IVPB 2100 EULA Levetiracetam 1,000 mg/ Device 100 mls @ 200 mls/hr IVPB BID EULA Last Admin: 02/02/18 08:47 Dose: 100 mls Octreotide Acetate 1,250 mcg/ (Sodium Chloride) 251.25 mls @ 5.02 mls/hr IVPB INF EULA PRN Reason: 25 MCG/HR Stop: 02/02/18 19:00 Sodium Bicarbonate 150 meq/ (Dextrose/Water) 1,150 mls @ 75 mls/hr IV .[id number] EULA Last Admin: 02/02/18 14:50 Dose: 1,150 mls Lactulose (Lactulose) 30 gm PO TID [facility] Last Admin: 02/02/18 15:26 Dose: 30 gm Lorazepam (Ativan) 2 mg SLOW IVP Q1H PRN PRN Reason: Breakthrough agitation Stop: 03/03/18 06:45 Magnesium Oxide (Magnesium Oxide) 400 mg PO BIDPRN PRN PRN Reason: FOR SERUM MAG 1.4 - 2.0 Magnesium Oxide (Magnesium Oxide) 800 mg PO PRN PRN PRN Reason: FOR SERUM MAG < 1.4 Methylprednisolone Sodium Succinate (Solu-Medrol) 40 mg IVP Q12HR [facility] Last Admin: 02/02/18 08:47 Dose: 40 mg Miscellaneous Medication (Phos-Nak) 1 pkt PO TIDPRN PRN PRN Reason: FOR PHOS LEVEL 1.0 - 1.8 Miscellaneous Medication (Phos-Nak) 2 pkt PO TIDPRN PRN PRN Reason: FOR PHOS LEVEL 0.5 - 1.0 Miscellaneous Medication (Pharmacy To Dose) 1 each IVPB PRN PRN PRN Reason: Pharmacy to dose Morphine Sulfate (Morphine Sulfate) 2 mg SLOW IVP Q1H PRN PRN Reason: breakthrough pain/agitation Discontinue Previous Narcotic Pain Medications And Benzodiazepines 1 each FS .ONE [facility] Stop: 03/03/18 06:45 Ccu Electrolyte (Replacement Protocol) 0 each FS PRN PRN PRN Reason: FOR ELECTROLYTE REPLACEMENT Pantoprazole Sodium (Protonix) 40 mg PER TUBE Q12HR [facility] Potassium Chloride (K-Dur) 40 meq PO ASDIR PRN PRN Reason: FOR SERUM K+ 2.5 - 3.5 Potassium Chloride (Klor-Con) 40 meq PER TUBE ASDIR PRN PRN Reason: FOR SERUM K+ 2.5-3.5 Propofol (Diprivan) 1,000 mg IV INF PRN; Protocol PRN Reason: TO ACHIEVE GOAL RASS Stop: 03/03/18 06:45 Propofol (Diprivan Bolus) 20 mg IV Q5MIN PRN PRN Reason: BREAKTHROUGH AGITATION Stop: 03/03/18 06:45 Sodium Chloride (Flush - Normal Saline) 10 ml IVF Q12HR [facility] Last Admin: 02/02/18 08:48 Dose: 10 ml Sodium Chloride (Flush - Normal Saline) 10 ml IVF PRN PRN PRN Reason: Saline Flush Thiamine HCl (Thiamine) 100 mg PO DAILY EULA Last Admin: 02/02/18 08:48 Dose: 100 mg
--- NOTE | 2018-02-02 15:51 | PDOC.EVN ---
Event Note - Event Note Event Note: 11:00-11:31 AM. Met with Tali Lowery, pt's . Updated her re: pt's current medical issues. Prognosis is guarded at this time. Discussed goals of care and code status. Goals of care continue to be management of medical problems. Pt is already DNR, continue to be DNR.
[2018-02-02 16:33] VITALS: BP 99/56
[2018-02-02 17:52] VITALS: TEMP 98.5
[2018-02-02] MEDS ORDERED: Lorazepam 2 MG/ML VIAL SLOW IVP PRN (18:08)
[2018-02-02] MEDS ORDERED: Pantoprazole 40 MG GRANULES PACKET PER TUBE SCH (21:00)
[2018-02-02] MEDS ORDERED: Vancomycin HCl 1.5 GM in Sodium Chloride 0.9% 250 ML 300 ML IVPB SCH (21:00)
--- NOTE | 2018-02-03 05:08 | CON ---
DATE OF CONSULTATION: 02/02/2018 CONSULTING PHYSICIAN: Felicia Galicia M.D. REQUESTING PHYSICIAN: Dr. Crowley. REASON FOR CONSULTATION: Severe metabolic acidosis and renal failure. IMPRESSION: 1. Severe metabolic acidosis in the context of liver failure as well as acute kidney injury with hyp otension with its attendant tissue hypoperfusion generating lactic acidemia. 2. Acute renal failure, likely multifactorial including hepatorenal syndrome and prerenal in the con text of hypotension. 3. Fulminant liver failure in the context of alcohol abuse. PLAN: 1. The patient's metabolic acidosis has defied medical intervention. Therefore, the only therapy av ailable for this patient at this point is renal replacement therapy in the way of hemodialysis. I di scussed with the patient's daughter and the and they would like this modality of treatment be in stituted. 2. I did make it very clear today the prognosis is very poor and the chances of survival is very sli m especially given the labile hemodynamics in this patient to be able to withstand hemodialysis treat ment. 3. We will secure emergent dialysis catheter in preparation for this modality of treatment. HISTORY OF PRESENT ILLNESS: A 62-year-old gentleman who has a significant problem with alcohol abuse who passed out at home, was brought in via EMS. The patient noted to have evidence of GI bleed, coa gulopathic with INR of 4.5/5. The patient noted to be in fulminant hepatic failure as well as renal failure with profound metabolic acidosis not amenable to medical therapy as well as the need for antonella l consultation. PAST MEDICAL HISTORY: Significant for alcohol abuse and hypotension. REVIEW OF SYSTEMS: Review of systems could not be obtained from this patient. SOCIAL HISTORY: The patient drinks on daily basis, starts with a hard liquor, likely whiskey and end s with hard liquor. FAMILY HISTORY: Could not be obtained from this patient, but it seems to be significant history of a lcohol abuse. ALLERGIES: No known drug allergy. PHYSICAL EXAMINATION: GENERAL: The patient was found to be intubated on a life support. VITAL SIGNS: Blood pressure that is very labile with systolic blood pressure in the 80 range, afebri le. HEENT: Unremarkable for endotracheal tube in place. CARDIOVASCULAR SYSTEM: First and second heart sounds were heard. RESPIRATORY SYSTEM: Reveals sounds. DIGESTIVE SYSTEM: Revealed obese abdomen. EXTREMITIES: No peripheral edema. SKIN: No new gross rash. LYMPHATICS: No peripheral lymphadenopathy. SUMMARY: A 62-year-old gentleman with significant alcohol abuse problem who presented here and fulmi nant hepatic failure with acute renal injury as well as severe metabolic acidosis. Thank you for this consultation. We will follow with you. The prognosis is very poor.
--- NOTE | 2018-02-03 05:17 | OP ---
PROCEDURE: Right femoral dialysis catheter placement. INDICATION: Severe metabolic acidosis, and renal failure. MEDICATION: A 1% lidocaine. MACHINE STRIPPER CUTTER: Felicia Glaicia M.D. DETAILS OF PROCEDURE: After informed consent was obtained, the patient was prepped and draped in a s terile fashion. The right femoral vein was approached in layers under real time ultrasound guidance and after serial dilatation, Trialysis catheter was secured over wire. All ports were flushed. Bloo d loss insignificant. The patient tolerated the procedure well. The line is good for use.
--- NOTE | 2018-02-03 18:17 | PRG ---
DATE OF SERVICE: 02/02/2018 HOSPITAL VISIT NOTE This is a cross coverage for Dr. David Pittman. SUBJECTIVE: Mr. Sj Lowery is a 62-year-old, male with gastrointestinal bleeding, altered mental status, encephalopathy, chronic liver disease. The patient is on the ventilator. The patien t had an EGD done by Dr. David Pittman, which revealed gastric ulcer with stigmata of bleeding. Ther e is also GE junction, possible esophagitis . He has been having multiple watery stools. However, his blood count remained stable around 9 to 8.3. His NG tube is mostly plaque. The most recent CBC this morning showed WBC 8200, hemoglobin 8.3, hematocrit 24.9, platelet count 102,000, ___ ___ , bandemia of 44%, lymphocytes 30. Blood sugar this morning was 130. His hepatitis markers are negative. PT is 49.7, INR 5.1. PHYSICAL EXAMINATION: GENERAL: He is on the ventilator, sedated. He is on vasopressor . VITAL SIGNS: Pulse 87, blood pressure 136/97. NECK: Supple. CARDIOVASCULAR: First and second heart sounds normal. LUNGS: Clear to auscultation. ABDOMEN: Mildly distended, but soft to palpate. Abdomen is nontender. CLINICAL IMPRESSION: 1. Upper gastrointestinal bleeding, gastric ulcer, hernia, nonbleeding due to the EGD yesterda y. 2. Chronic liver disease, possible liver cirrhosis. 3. Altered mental status. 4. Anemia due to blood loss. RECOMMENDATIONS: 1. Discontinue IV Protonix drip. 2. Protonix 40 mg twice a day through NG tube. 3. Followup H&H and transfuse p.r.n.
[2018-02-03] MEDS ORDERED: Heparin 1,000 UNITS/ML VIAL ONE (18:39)
== END 2018-02-02 18:26 | disposition expired | DRG 871 ==
LOC: ERS 03:09 → CCU 06:50
PROVIDERS: ADMIT Hospitalist; ATTEND Hospitalist
PROC: 30233K1 Transfusion of Nonautologous Frozen Plasma into Peripheral Vein, Percutaneous Approach (ICD-10-PCS; principal; 2018-02-01)
PROC: 30233N1 Transfusion of Nonautologous Red Blood Cells into Peripheral Vein, Percutaneous Approach (ICD-10-PCS; 2018-02-01)
PROC: 02HV33Z Insertion of Infusion Device into Superior Vena Cava, Percutaneous Approach (ICD-10-PCS; 2018-02-01)
PROC: 3E033XZ Introduction of Vasopressor into Peripheral Vein, Percutaneous Approach (ICD-10-PCS; 2018-02-01)
PROC: 0DJ08ZZ Inspection of Upper Intestinal Tract, Via Natural or Artificial Opening Endoscopic (ICD-10-PCS; 2018-02-01)
PROC: 5A1945Z Respiratory Ventilation, 24-96 Consecutive Hours (ICD-10-PCS; 2018-02-01)
PROC: 06HY33Z Insertion of Infusion Device into Lower Vein, Percutaneous Approach (ICD-10-PCS; 2018-02-02)
PROC: 5A1D70Z Performance of Urinary Filtration, Intermittent, Less than 6 Hours Per Day (ICD-10-PCS; 2018-02-02)
DX: A41.9 Sepsis, unspecified organism (principal); K25.4 Chronic or unspecified gastric ulcer with hemorrhage; J96.02 Acute respiratory failure with hypercapnia; J96.01 Acute respiratory failure with hypoxia; R65.21 Severe sepsis with septic shock; K65.2 Spontaneous bacterial peritonitis; K22.11 Ulcer of esophagus with bleeding; E87.1 Hypo-osmolality and hyponatremia; N17.9 Acute kidney failure, unspecified; E87.2 Acidosis; Z66 Do not resuscitate; R57.1 Hypovolemic shock; K70.40 Alcoholic hepatic failure without coma; K70.10 Alcoholic hepatitis without ascites; F10.20 Alcohol dependence, uncomplicated; D50.0 Iron deficiency anemia secondary to blood loss (chronic); E87.6 Hypokalemia; K44.9 Diaphragmatic hernia without obstruction or gangrene; E16.2 Hypoglycemia, unspecified; F17.210 Nicotine dependence, cigarettes, uncomplicated; Z87.19 Personal history of other diseases of the digestive system
CPT/HCPCS: 36415; 36416; 36430; 36556; 51702; 70450; 71045; 76700; 80053; 80306; 81003; 81015; 82140; 82550; 82553; 82805; 83605; 83690; 83735; 83880; 84100; 84484; 85025; 85610; 85730; 86704; 86706; 86803; 86850; 86900; 86901; 87040; 87340; 90935; 93005; 94002; 94003; 96361; 96365; 96366; 96368; 96375; 99292; A4216; C1752; C9113; G0257; J0171; J0696; J1644; J1953; J2060; J2270; J2354; J2920; J3370; J3411; J3430; J3475; J3480; J7042; J7050; J7070; P9016; P9048